=== PATIENT | male | born 1955 | race Caucasian/White ===

== ENCOUNTER 2017-05-20 11:57 | Emergency (ER) | payer OTHER ==
[~2017-05-20] VITALS: Ht 167.6 cm; Wt 63.1 kg
[~2017-05-20 11:57] MED LIST: ASPCH81X PO; IBUP-103 PO; LPR25 PO; MVC20 PO
[2017-05-20 12:09] VITALS: TEMP 36.6; Ht 167.6 cm; Wt 63.1 kg
[2017-05-20] MEDS ORDERED: ONDANSETRON INJ 2 MG/ML 2 ML VIAL IV STA (12:21)
[2017-05-20] MEDS ORDERED: SODIUM CHLORIDE 0.9% 1000ML 500 ML IV ONE (12:21)
[2017-05-20 12:49] LABS: URINE APPEARANCE CLEAR (CLEAR); URINE BILIRUBIN NEG (NEG); URINE COLOR DK YELLOW; URINE NITRITE NEG (NEG); URINE SPECIFIC GRAVITY 1.027 (1.000-1.030); UROBILINOGEN NEG (NEG); ZZUR CULT IF INDIC CLEAN CATCH YES
[2017-05-20 12:56] LABS: MANUAL MICROSCOPIC REQUIRED? NO; REVIEW REQ? YES
[2017-05-20] MEDS ORDERED: CIPROFLOXACIN 500 MG TAB PO STA (13:01)
[2017-05-20] MEDS ORDERED: TAMSULOSIN HCL 0.4 MG CAP PO STA (13:01)
[2017-05-20] MEDS ORDERED: TAMS0.4C38 PO (13:03)
[2017-05-20] MEDS ORDERED: CIPR1TAB10 PO (13:03)
[2017-05-20 13:09] LABS: URINE MUCUS PRESENT (NONE PRSENT)
--- NOTE | 2017-05-20 13:15 | EMERGENCY ROOM VISIT NOTE ---
History Report prepared by [place]: Chuck Arechiga Under the Supervision of: Dr. Juanito Thomas M.D. First contact with patient: 12:26 Chief Complaint: KIDNEY STONE Stated Complaint: KIDNEY STONES History of Present Illness The patient is a 61 year old male who presents to the Emergency Room with complaints of persistent urinary symptoms beginning this week. The patient's symptoms include pain with urination and decreased urinary output. He also complains of abdominal pain. Nothing has improved his symptoms. Source of History: patient Onset: This week Quality: other (urinary symptoms) Timing: other (persistent) Modifying Factors (Relieving): other (none) Associated Symptoms: + abdominal pain Review of Systems See HPI for pertinent positives & negatives. A total of 10 systems reviewed and were otherwise negative. Past Medical & Surgical Medical Problems: (1) CHRIS (acute kidney injury) (2) CVA (cerebral vascular accident) (3) Kidney stone on left side (4) Stroke (5) Ureteral stone with hydronephrosis (6) Urinary tract obstruction by kidney stone Surgical Problems: (1) H/O hernia repair (2) H/O wisdom tooth extraction Family History FH: heart disease Social History Smoking Status: Former Smoker Drug Use: none Marital Status: single Housing Status: lives alone Occupation Status: disabled Current/Historical Medications Scheduled Aspirin (Aspirin Chewable), 81 MG PO DAILY Ciprofloxacin Hcl (Cipro), 1 TAB PO BID Lovastatin (Lovastatin), 20 MG PO DAILY@17 Metoprolol Tartrate (Lopressor), 12.5 MG PO BID Tamsulosin Hcl (Flomax), 0.4 MG PO DAILY Allergies Coded Allergies: No Known Allergies (Unverified , 07/31/16) Physical Exam Vital Signs Date Time Temp Pulse Resp B/P (MAP) Pulse Ox O2 Delivery O2 Flow Rate FiO2 05/20/17 13:48 87 20 177/123 99 Room Air 05/20/17 13:19 188/124 05/20/17 13:15 94 18 170/116 95 Room Air 05/20/17 12:09 36.6 102 20 123/80 100 Room Air Physical Exam GENERAL: Patient is a healthy-appearing well-nourished male HEAD: Normocephalic atraumatic EYES: Ocular movements intact pupils equal and react to light OROPHARYNX mucous membranes are moist no exudates present no erythema or edema present NECK: Supple no nuchal rigidity CHEST: Good equal expansion LUNGS: Clear and equal to auscultation CARDIAC: Normal S1 and S2 ABDOMEN: Soft, no guarding. Pain in the suprapubic area. BACK: No CVA tenderness EXTREMITIES: No pain upon palpation normal muscle strength in all groups no clubbing cyanosis or edema NEURO: Patient is following commands and answering questions appropriately. Alert and oriented x3 Cranial Nerves 2-12 grossly intact Medical Decision & Procedures Laboratory Results Test 05/20/17 12:18 Urine Color DK YELLOW Urine Appearance CLEAR (CLEAR) Urine pH 6.0 (4.5-7.5) Urine Specific [place] 1.027 (1.000-1.030) Urine Protein 1+ (NEG) Urine Glucose (UA) NEG (NEG) Urine Ketones 1+ (NEG) Urine Occult Blood NEG (NEG) Urine Nitrite NEG (NEG) Urine Bilirubin NEG (NEG) Urine Urobilinogen NEG (NEG) Urine Leukocyte Esterase NEG (NEG) Urine WBC (Auto) 1-5 /hpf (0-5) Urine RBC (Auto) 0-4 /hpf (0-4) Urine Hyaline Casts (Auto) 1-5 /lpf (0-5) Urine Epithelial Cells (Auto) 5-10 /lpf (0-5) Urine Bacteria (Auto) NEG (NEG) Urine Mucus PRESENT (NONE PRSENT) Urine Yeast (Auto) (NONE PRSENT) Labs reviewed by ED physician. Medications Administered Medications (Trade) Dose Ordered Sig/Amrik Route Start Time Stop Time Status Last Admin Dose Admin Tamsulosin HCl (Flomax Cap) 0.4 mg NOW STAT PO 05/20/17 13:01 05/20/17 13:03 DC 05/20/17 13:13 0.4 MG Ciprofloxacin (Cipro Tab) 500 mg NOW STAT PO 05/20/17 13:01 05/20/17 13:03 DC 05/20/17 13:13 500 MG ED Course 1232: Past medical records reviewed. The patient was evaluated in room C12B. A complete history and physical examination was performed. 1300: Upon reexamination the patient is resting comfortably. I reexamined his abdomen, and he is completely non-tender. I discussed results and treatment plan with the patient. He verbalizes agreement and understanding. The patient is ready for discharge. Medical Decision Differential diagnosis: Etiologies such as renal colic, appendicitis, diverticulitis, mesenteric ischemia, aortic pathology, infections, inflammatory bowel disease, PUD, biliary pathology, UTI, as well as others were entertained. This is a 61-year-old male who presents emergency department complaining of suprapubic abdominal pain. This pain was immediately relieved with the insertion of Queen catheter. The patient will be placed on Flomax as well as Cipro. I encouraged patient follow-up with urology. Patient and are in agreement with the treatment plan. Medication Reconcilliation Current Medication List: was personally reviewed by me Blood Pressure Screening Patient's blood pressure: Normal blood pressure Blood pressure disposition: Did not require urgent referral Impression Primary Impression: Urinary retention Scribe Attestation The scribe's documentation has been prepared under my direction and personally reviewed by me in its entirety. I confirm that the note above accurately reflects all work, treatment, procedures, and medical decision making performed by me. Departure Information Dispostion Home / Self-Care Prescriptions Ciprofloxacin Hcl (CIPRO) 500 Mg Tab 1 TAB PO BID for 10 Days, #20 TAB Prov: Juanito Thomas MD 05/20/17 Tamsulosin Hcl (FLOMAX) 0.4 Mg Cap 0.4 MG PO DAILY for 10 Days, #10 CAP Prov: Juanito Thomas MD 05/20/17 Referrals Cammie Khanna M.D. (PCP) Forms HOME CARE DOCUMENTATION FORM, IMPORTANT VISIT INFORMATION Patient Instructions ED Catheter Care Queen, ED Retention Urinary Male, My [facility] Additional Instructions Follow up with Dr Davis' office this week You have been examined and treated today on an emergency basis only. This is not a substitute for, or an effort to provide, complete comprehensive medical care. It is impossible to recognize and treat all injuries or illnesses in a single emergency department visit. It is therefore important that you follow up closely with Dr Khanna. Call as soon as possible for an appointment. Thank you for your time and consideration. I look forward to speaking with you again soon. Please don't hesitate to call us if you have any questions.
[2017-05-20 13:48] VITALS: BP 177/123; PULSE 87; O2SAT 99
== END 2017-05-20 14:03 | disposition home or self-care (01) ==
LOC: C.EDB 11:59 → C.EDC 14:03
DX: R33.9 Retention of urine, unspecified (principal); N17.9 Acute kidney failure, unspecified; I63.9 Cerebral infarction, unspecified; Z82.49 Family history of ischemic heart disease and other diseases of the circulatory system; Z87.891 Personal history of nicotine dependence

== ENCOUNTER 2018-02-02 12:38 | Inpatient (IN) | payer OTHER ==
[~2018-02-02] VITALS: Ht 160 cm; Wt 59.5 kg
[~2018-02-02 12:38] MED LIST changes: -IBUP-103 PO
[2018-02-02] MEDS ORDERED: SODIUM CHLORIDE 0.9% 1000ML 1,000 ML IV SCH (12:59)
[2018-02-02] MEDS ORDERED: LEVO75TA5 PO (13:06)
[2018-02-02] MEDS ORDERED: TAMS0.4C38 PO (13:06)
[2018-02-02] MEDS ORDERED: LOVA20TA4 PO (13:06)
[2018-02-02 13:08] LABS: BASO % 0.3 %; BASO ABS # 0.03 K/uL (0-0.2); EOS % 0.4 %; EOS ABS # 0.04 K/uL (0-0.5); HEMATOCRIT 46.3 % (42-52); HEMOGLOBIN 16.6 g/dL (14.0-18.0); IG# 0.02 K/uL (0.00-0.02); LYMPH % 12.2 %; LYMPH ABS # 1.14 K/uL (1.2-3.4); MEAN CELL VOLUME 85.7 fL (80-100); MEAN CORPUSCULAR HEMOGLOBIN 30.7 pg (25-34); MEAN CORPUSCULAR HGB CONC 35.9 g/dl (32-36); MEAN PLATELET VOLUME 10.4 fL (7.4-10.4); MONO % 5.5 %; MONO ABS # 0.51 K/uL (0.11-0.59); NEUT % 81.4 %; NEUT ABS # 7.59 K/uL (1.4-6.5); PLATELET COUNT 276 K/uL (130-400); RED CELL DISTRIBUTION WIDTH CV 13.3 % (11.5-14.5); RED CELL DISTRIBUTION WIDTH SD 41.9 fL (36.4-46.3); WHITE BLOOD COUNT 9.33 K/uL (4.8-10.8)
[2018-02-02 13:19] LABS: BLOOD UREA NITROGEN 18 mg/dl (7-18); CALCIUM 9.6 mg/dl (8.5-10.1); CARBON DIOXIDE 23 mmol/L (21-32); CREATININE 1.33 mg/dl (0.60-1.40); GLUCOSE 104 mg/dl (70-99); POTASSIUM 4.3 mmol/L (3.5-5.1); SODIUM 137 mmol/L (136-145)
--- NOTE | 2018-02-02 13:25 | EMERGENCY ROOM VISIT NOTE ---
History First contact with patient: 12:48 Chief Complaint: SYNCOPE Stated Complaint: SYNCOPE Nursing Triage Summary: pt has a hx of 2 previous CVA's with left sided weakness and some expressive aphagia. pt also has anxiety attacks. pt was riding in a car with his cousin, became diaphoretic and syncopal for approx 50 sec per cousin when awake very anxious and hyperventilating. pt currently anxious but a/ox4 and cooperative History of Present Illness The patient is a 62 year old male who presents to the Emergency Room via ambulance with complaints of "syncope". The patient states that just prior to arrival he was riding in a car when he became diaphoretic, and syncopized for approximately 50 seconds as per cousin. He was brought here via ambulance. The patient states that at baseline he has left-sided weakness with expressive aphasia secondary to 2 CVAs in the past. He states that when he passed out today his head was benavides. He notes no problems right now and his symptoms have resolved. He notes no chest pain or shortness of breath. He ate breakfast today and denies being diabetic. He notes no new symptoms/progression of his CVA symptoms from previous. He notes that he has had syncopal events in the past and does see a heart doctor but does not know why these occur. It has been quite some time since his previous syncopal event. Review of Systems A complete 10-point Review of Systems was discussed with the patient, with pertinent positives and negatives listed in the History of Present Illness. All remaining Review of Systems questions can be considered negative unless otherwise specified. Past Medical/Surgical History Medical Problems: (1) CHRIS (acute kidney injury) (2) CVA (cerebral vascular accident) (3) Kidney stone on left side (4) Stroke (5) Ureteral stone with hydronephrosis (6) Urinary tract obstruction by kidney stone Surgical Problems: (1) H/O hernia repair (2) H/O wisdom tooth extraction Family History FH: heart disease Social History Smoking Status: Former Smoker Drug Use: none Marital Status: single Housing Status: lives alone Occupation Status: disabled Current/Historical Medications Scheduled Aspirin (Aspirin Chewable), 81 MG PO DAILY Levothyroxine Sodium (Levothyroxine Sodium), 75 MCG PO DAILY Lovastatin (Mevacor), 20 MG PO DAILY Tamsulosin Hcl (Flomax), 0.4 MG PO DAILY Physical Exam Vital Signs Date Time Temp Pulse Resp B/P (MAP) Pulse Ox O2 Delivery O2 Flow Rate FiO2 02/02/18 14:08 93 22 92 Room Air 02/02/18 14:01 128/87 Room Air 02/02/18 13:09 136/99 Room Air 02/02/18 13:08 88 20 100 Room Air 02/02/18 13:03 36.8 82 26 133/104 96 Room Air 02/02/18 13:02 100 Room Air 02/02/18 12:50 88 02/02/18 12:47 133/104 Physical Exam VITAL SIGNS - Vital signs and nursing notes were reviewed. Stable. Increased ventilatory rate and blood pressure. GENERAL -62-year-old male appearing his stated age who is in no acute distress. Communicates well with provider and answers questions appropriately. There is some delay with evidence of expressive aphasia which the patient also notes is not new. SKIN - Without rashes. No meningeal or petechial rash. HEAD - NC/AT. EYES - PERRL with EOMI bilaterally. Sclera anicteric. EARS - No deformities of external structures noted on gross examination bilaterally. NOSE - Midline and without cyanosis. No epistaxis or purulent drainage noted. MOUTH/OROPHARYNX - Without perioral cyanosis. Buccal mucosa pink and moist and without leukoplakia. Tongue midline with equal elevation of palate bilaterally. NECK - Neck with FROM. Supple to palpation. No lymphadenopathy noted. No nuchal rigidity. LUNGS - Chest wall symmetric without accessory muscle use, intercostals retractions, or central cyanosis. Normal vesicular breath sounds CTA B/L. No wheezes, rales, or rhonchi appreciated. CARDIAC - RRR with S1/S2. No murmur, rubs, or gallops appreciated. ABDOMEN - Abdominal contour normal without pulsations or visible masses. BS normoactive all four quadrants. No tenderness, palpable masses, hepatosplenomegaly, or ascites noted. EXTREMITIES - No clubbing or peripheral cyanosis. No pretibial edema present. Strength deficit left greater than right. Patient notes that this is not new. This is baseline per patient. NEUROLOGIC - Cranial nerves II through XII grossly intact. Sensory intact to light touch throughout. PSYCH - A&O, and cooperates fully with examiner. Pt is very pleasant and interacts well with examiner. Medical Decision & Procedures ER Provider Diagnostic Interpretation: CHEST ONE VIEW PORTABLE CLINICAL HISTORY: syncope COMPARISON STUDY: 07/27/2016 FINDINGS: The cardiac and mediastinal contours are normal. There is no evidence of focal pulmonary consolidation. There is no evidence of failure. No pleural effusions are visualized.[ There is persistent by basilar atelectasis/scarring. IMPRESSION: Stable bibasilar atelectasis/scarring. No acute findings. Electronically signed by: Manohar Cee M.D. 02/02/2018 1:24 PM Dictated Date/Time: 02/02/2018 1:24 PM HEAD WITHOUT CONTRAST (CT) CT DOSE: 614.27 mGy.cm HISTORY: Mental status change Stroke TECHNIQUE: Multiaxial CT images of the head were performed without the use of intravenous contrast. A dose lowering technique was utilized adhering to the principles of ALARA. Comparison: None. Findings: The paranasal sinuses and mastoid air cells are clear. Old infarct left frontal lobe. Mild compensatory prominence left lateral ventricle. No evidence for acute intracranial hemorrhage. No midline shift. Impression: 1. Old left frontal infarct. 2. Otherwise negative study The above report was generated using voice recognition software. It may contain grammatical, syntax or spelling errors. Electronically signed by: Kimani Waller M.D. 02/02/2018 2:07 PM Dictated Date/Time: 02/02/2018 2:03 PM Laboratory Results 02/02/18 12:50 Red Blood Count 5.40, Mean Corpuscular Volume 85.7, Mean Corpuscular Hemoglobin 30.7, Mean Corpuscular Hemoglobin Concent 35.9, Mean Platelet Volume 10.4, Neutrophils (%) (Auto) 81.4, Lymphocytes (%) (Auto) 12.2, Monocytes (%) (Auto) 5.5, Eosinophils (%) (Auto) 0.4, Basophils (%) (Auto) 0.3, Neutrophils # (Auto) 7.59, Lymphocytes # (Auto) 1.14, Monocytes # (Auto) 0.51, Eosinophils # (Auto) 0.04, Basophils # (Auto) 0.03 02/02/18 12:50 Test 02/02/18 12:50 02/02/18 13:36 White Blood Count 9.33 K/uL (4.8-10.8) Red Blood Count 5.40 M/uL (4.7-6.1) Hemoglobin 16.6 g/dL (14.0-18.0) Hematocrit 46.3 % (42-52) Mean Corpuscular Volume 85.7 fL (80-100) Mean Corpuscular Hemoglobin 30.7 pg (25-34) Mean Corpuscular Hemoglobin Concent 35.9 g/dl (32-36) Platelet Count 276 K/uL (130-400) Mean Platelet Volume 10.4 fL (7.4-10.4) Neutrophils (%) (Auto) 81.4 % Lymphocytes (%) (Auto) 12.2 % Monocytes (%) (Auto) 5.5 % Eosinophils (%) (Auto) 0.4 % Basophils (%) (Auto) 0.3 % Neutrophils # (Auto) 7.59 K/uL (1.4-6.5) Lymphocytes # (Auto) 1.14 K/uL (1.2-3.4) Monocytes # (Auto) 0.51 K/uL (0.11-0.59) Eosinophils # (Auto) 0.04 K/uL (0-0.5) Basophils # (Auto) 0.03 K/uL (0-0.2) RDW Standard Deviation 41.9 fL (36.4-46.3) RDW Coefficient of Variation 13.3 % (11.5-14.5) Immature Granulocyte % (Auto) 0.2 % Immature Granulocyte # (Auto) 0.02 K/uL (0.00-0.02) Anion Gap 9.0 mmol/L (3-11) Est Creatinine Clear Calc Drug Dose 49.5 ml/min Estimated GFR () 66.9 Estimated GFR (Non- 57.7 BUN/Creatinine Ratio 13.4 (10-20) Calcium Level 9.6 mg/dl (8.5-10.1) Magnesium Level 2.4 mg/dl (1.8-2.4) Total Creatine Kinase 81 U/L (39-308) Creatine Kinase MB 1.0 ng/ml (0.5-3.6) Creatine Kinase MB Ratio 1.2 (0-3.0) Troponin I < 0.015 ng/ml (0-0.045) Prothrombin Time 11.6 SECONDS (9.0-12.0) Prothromb Time International Ratio 1.1 (0.9-1.1) Activated Partial Thromboplast Time 25.7 SECONDS (21.0-31.0) Partial Thromboplastin Ratio 1.0 Medications Administered Medications (Trade) Dose Ordered Sig/Amrik Route Start Time Stop Time Status Last Admin Dose Admin Sodium Chloride 1,000 ml @ 50 mls/hr Q20H IV 02/02/18 12:59 03/04/18 12:58 02/02/18 13:40 50 MLS/HR Medical Decision Patient was seen and evaluated as above in room B6. He presents to us today via ambulance status post syncopal event. Past medical history significant for that of 2 CVAs. Review was performed of nursing notes and vital signs. After obtaining a thorough history and physical examination the above work up was performed. Chest x-ray and bedside EKG were obtained. EKG reveals per my interpretation normal sinus rhythm, with short HI rate of 79 bpm. This EKG does reveal potential ischemic changes in leads III, aVF, V2, V3 as well as V4, V5 and V6 all of which are unchanged compared to previous study and he has no chest pain. CT the head reveals old infarct. Chest x-ray reveals chronic change. CBC reveals no leukocytosis or anemia. Coags are normal. His metabolic panel reveals no evidence of kidney failure. Troponin negative. The patient with his syncopal event of unknown origin and his underlying past medical history I believe warrants inpatient management to rule out other significant causes. I did review his recent stress test from December of which there was a lot of artifact noted//inadequate assessment secondary to motion. I did discuss this with the attending physician as well as the hospitalist who will further evaluate his syncopal event. I attest that I have personally reviewed the patient medication list. I attest that I have reviewed the patient's blood pressure and it was found to be elevated likely secondary to situation. In the evaluation and treatment of this patient, the following differential diagnoses were considered: Concussion, Contrecoup Injury, Brain Tumor, Depression, Encephalitis, Hypothyroidism, MD, PE, meningitis, CVA, TIA, Migraine , Cluster Headache, Intracranial Abnormality, Intracranial Hemorrhage, Subdural Hematoma, Subarachnoid Hemorrhage, Hydrocephalus. Impression Primary Impression: Syncope Departure Information Referrals Cammie Khanna M.D. (PCP) Patient Instructions [facility]
[2018-02-02 13:53] LABS: INR 1.1 (0.9-1.1); PTT PATIENT 25.7 SECONDS (21.0-31.0)
--- NOTE | 2018-02-02 13:59 | EMERGENCY ROOM VISIT NOTE ---
ED Visit Note First contact with patient: 12:48 I did evaluate and examine this patient myself. I did guide management for the patient. I agree with the PA's assessment as discussed. Please see the PAs dictation for further details. I did independently review the CT scan, chest x- ray and blood work. Patient is presenting with a syncopal episode today. He will be hospitalized for further evaluation.
--- NOTE | 2018-02-02 14:08 | DIAGNOSTIC IMAGING REPORT ---
HEAD WITHOUT CONTRAST (CT) CT DOSE: 614.27 mGy.cm HISTORY: Mental status change Stroke TECHNIQUE: Multiaxial CT images of the head were performed without the use of intravenous contrast. A dose lowering technique was utilized adhering to the principles of ALARA. Comparison: None. Findings: The paranasal sinuses and mastoid air cells are clear. Old infarct left frontal lobe. Mild compensatory prominence left lateral ventricle. No evidence for acute intracranial hemorrhage. No midline shift. Impression: 1. Old left frontal infarct. 2. Otherwise negative study The above report was generated using voice recognition software. It may contain grammatical, syntax or spelling errors. Electronically signed by: Kimani Waller M.D. 02/02/2018 2:07 PM Dictated Date/Time: 02/02/2018 2:03 PM
[2018-02-02] MEDS ORDERED: ONDANSETRON INJ 2 MG/ML 2 ML VIAL IV PRN (15:15)
[2018-02-02] MEDS ORDERED: ACETAMINOPHEN 325 MG TAB PO PRN (15:15)
[2018-02-02 16:10] VITALS: O2SAT 97
--- NOTE | 2018-02-02 16:39 | History and Physical ---
History & Physical Date & Time of Service: Feb 02, 2018 ~ 14:45 Chief Complaint: Syncope Primary Care Physician: Elizabeth Tinsley D.O. History of Present Illness 62-year-old male who presents to the ED after syncopal event today. Patient has a long-standing history of lightheadedness and near syncope. He has been evaluated by electrophysiology as an outpatient. Patient had a 0 patch completed in 10/2017 that showed bradycardia and 4 second pause while sleeping. Patient also underwent a cardiac CT that was unremarkable. Patient was referred to have a implantable loop recorder placed however that has not been scheduled yet. Patient reports that while driving today he started to feel lightheaded. He then pulled over to the side of the road and lay down for 15 minutes. He reports his symptoms resolved. He then drove to his cousin's house. He was riding in the car with her whenever he reports he started to feel lightheaded again. He then subsequently passed out. I attempted to contact the patient's cousin who he was with however she did not answer the phone. Patient reports he was told he was out for about 1 minute. No reported tongue biting, loss of bowel or bladder function, or postictal-like state. Patient denies associated chest pain or shortness of breath. He reports he has never passed out in the past. He reports he otherwise has been feeling well recently. No fevers or chills. He denies abdominal pain, nausea, vomiting, or diarrhea. No urinary symptoms. In the ED, no bradycardia or pauses have been noted. BP is stable. Labs are unremarkable. EKG shows new T-wave inversions in the anterior leads. Past Medical/Surgical History Medical Problems: (1) CVA (cerebral vascular accident) Status: Chronic (2) Dyslipidemia Status: Chronic (3) Hypertension Status: Chronic (4) Left carotid artery occlusion Status: Chronic (5) Renal calculi Status: Chronic (6) Subclinical hypothyroidism Status: Chronic Surgical Problems: (1) H/O hernia repair Status: Chronic (2) H/O lithotripsy Status: Chronic (3) H/O wisdom tooth extraction Status: Chronic Family History FH: heart disease FATHER ([place] at age 39) BROTHER (Twin, fatal [place] at age 49) BROTHER ([place] at age 55) Social History Smoking Status: Former Smoker Alcohol Use: none Marital Status: single Housing status: lives alone Immunizations History of Influenza Vaccine: Yes Influenza Vaccine Date: Oct 02, 2017 History of Tetanus Vaccine?: Yes Tetanus Immunization Date: Mar 22, 2011 Allergies Coded Allergies: No Known Allergies (Unverified , 07/31/16) Home Medications Scheduled Aspirin (Aspirin Chewable), 81 MG PO DAILY Levothyroxine Sodium (Levothyroxine Sodium), 75 MCG PO DAILY Lovastatin (Mevacor), 20 MG PO DAILY Tamsulosin Hcl (Flomax), 0.4 MG PO DAILY Review of Systems ROS per HPI, all other systems reviewed and negative Physical Exam Vital Signs Date Time Temp Pulse Resp B/P (MAP) Pulse Ox O2 Delivery O2 Flow Rate FiO2 02/02/18 16:10 101 16 150/101 97 Room Air 02/02/18 15:21 95 02/02/18 15:15 102 14 135/102 96 Room Air 02/02/18 14:08 93 22 92 Room Air 02/02/18 14:01 128/87 Room Air 02/02/18 13:09 136/99 Room Air 02/02/18 13:08 88 20 100 Room Air 02/02/18 13:03 36.8 82 26 133/104 96 Room Air 02/02/18 13:02 100 Room Air 02/02/18 12:50 88 02/02/18 12:47 133/104 General Appearance: WD/WN, no apparent distress Head: normocephalic, atraumatic Eyes: normal inspection, EOMI, sclerae normal ENT: hearing grossly normal, + pertinent finding (Mucous membranes moist) Neck: supple, no JVD, trachea midline Respiratory/Chest: lungs clear, normal breath sounds, no respiratory distress Cardiovascular: regular rate, rhythm, no edema, normal peripheral pulses Abdomen/GI: normal bowel sounds, non tender, soft, no organomegaly Extremities/Musculoskelatal: normal inspection, no calf tenderness, normal capillary refill Neurologic/Psych: alert, normal mood/affect, oriented x 3, + facial droop (Left -sided, chronic), + motor weakness (LUE/LLE strength 4/5, chronic), + pertinent finding (Dysarthria, chronic) Skin: normal color, warm/dry Diagnostics Laboratory Results Results Past 24 Hours Test 02/02/18 12:50 02/02/18 13:36 Range/Units White Blood Count 9.33 4.8-10.8 K/uL Red Blood Count 5.40 4.7-6.1 M/uL Hemoglobin 16.6 14.0-18.0 g/dL Hematocrit 46.3 42-52 % Mean Corpuscular Volume 85.7 80-100 fL Mean Corpuscular Hemoglobin 30.7 25-34 pg Mean Corpuscular Hemoglobin Concent 35.9 32-36 g/dl Platelet Count 276 130-400 K/uL Mean Platelet Volume 10.4 7.4-10.4 fL Neutrophils (%) (Auto) 81.4 % Lymphocytes (%) (Auto) 12.2 % Monocytes (%) (Auto) 5.5 % Eosinophils (%) (Auto) 0.4 % Basophils (%) (Auto) 0.3 % Neutrophils # (Auto) 7.59 1.4-6.5 K/uL Lymphocytes # (Auto) 1.14 1.2-3.4 K/uL Monocytes # (Auto) 0.51 0.11-0.59 K/uL Eosinophils # (Auto) 0.04 0-0.5 K/uL Basophils # (Auto) 0.03 0-0.2 K/uL RDW Standard Deviation 41.9 36.4-46.3 fL RDW Coefficient of Variation 13.3 11.5-14.5 % Immature Granulocyte % (Auto) 0.2 % Immature Granulocyte # (Auto) 0.02 0.00-0.02 K/uL Sodium Level 137 136-145 mmol/L Potassium Level 4.3 3.5-5.1 mmol/L Chloride Level 105 98-107 mmol/L Carbon Dioxide Level 23 21-32 mmol/L Anion Gap 9.0 3-11 mmol/L Blood Urea Nitrogen 18 7-18 mg/dl Creatinine 1.33 0.60-1.40 mg/dl Est Creatinine Clear Calc Drug Dose 49.5 ml/min Estimated GFR () 66.9 Estimated GFR (Non- 57.7 BUN/Creatinine Ratio 13.4 10-20 Random Glucose 104 70-99 mg/dl Calcium Level 9.6 8.5-10.1 mg/dl Magnesium Level 2.4 1.8-2.4 mg/dl Total Creatine Kinase 81 39-308 U/L Creatine Kinase MB 1.0 0.5-3.6 ng/ml Creatine Kinase MB Ratio 1.2 0-3.0 Troponin I < 0.015 0-0.045 ng/ml Thyroid Stimulating Hormone (TSH) 1.200 0.300-4.500 uIu/ml Prothrombin Time 11.6 9.0-12.0 SECONDS Prothromb Time International Ratio 1.1 0.9-1.1 Activated Partial Thromboplast Time 25.7 21.0-31.0 SECONDS Partial Thromboplastin Ratio 1.[address] head impression: 1. Old left frontal infarct. 2. Otherwise negative study CXR IMPRESSION: Stable bibasilar atelectasis/scarring. No acute findings. Impression Assessment and Plan SYNCOPE -admit to telemetry -Patient presenting after experiencing a syncopal event today -Has been following with EP as an outpatient for lightheadedness and near syncope; had an outpatient Holter monitor that showed bradycardia and 4 second pause while sleeping-was referred for implantable loop recorder however has not been scheduled yet -EKG shows normal sinus rhythm with incomplete right bundle branch block and new T-wave inversions in the anterior leads -No preceding chest pain or shortness of breath; syncope does not seem stroke or seizure-like in nature -Initial troponin negative, will continue to cycle cardiac enzymes -Echo 10/2017-EF 55-60%, no significant valvular disease; will defer repeating echocardiogram to cardiology -cardiac CT 01/07/18- Agatston calcium score 0 -Cardiology consult, case discussed with Dr. Rainey HYPOTHYROIDISM -TSH 1.2 -Continue levothyroxine HISTORY OF CVA -Continue aspirin and statin DVT PROPHYLAXIS -SQ Lovenox DISPOSITION -In my clinical judgment this beneficiary meets acute admission criteria, established by [facility], that includes being hospitalized through two midnights. Addendum: I have seen and examined the patient and agree with the assessment and plan as above with the following exceptions. Patient has a chronic expressive aphasia from prior strokes as well as other chronic deficits that have not changed today. He communicates syncopal events similar to today's once a month. Prior monitoring has showed 4 second pause while sleeping. Current plan is for loop recorder as stated above. The patient denies any symptoms at this time and states that prior to syncopal events he will feel dizziness. Cardiology has restricted his driving abilities. Exam was otherwise unremarkable. Continue to trend serial enzymes overnight and monitor on telemetry. Drumright, DO Resuscitation Status VTE Prophylaxis Will order VTE Prophylaxis: Yes
--- NOTE | 2018-02-02 16:54 | CARDIOLOGY CONSULTATION ---
DATE OF CONSULTATION: 02/02/2018 Cardiology consultation. REASON FOR CONSULTATION: Syncope, abnormal ECG. REFERRING PHYSICIAN: DEMETRI Carter. HISTORY OF PRESENT ILLNESS: Mr. Durant is a 62-year-old gentleman who presents for evaluation of syncope. In the hours preceding presentation, patient developed lightheaded and dizziness while driving. He pulled his car to the side of the road and then lied down. Apparently he passed out for approximately 50 minutes. This was witnessed by his cousin. His cousin is not here for history at this time. Patient denies any incontinence, tongue biting, or postictal state. There are no tonic/clonic movements reported. Carries a history of recurrent syncope over the past 12 months. He has been evaluated 14-day ZIO monitor which demonstrated an asymptomatic 4-second pause occurring at 0539 a.m. Notes intermittent lightheadedness and episodes which typically last about 15 minutes. These occur approximately 1 time per month. Denies any exertional chest pain or unusual shortness of breath. Recent cardiac CT demonstrated an Agatston score of 0; however, the coronary arteries were poorly visualized. Recent resting 2D transthoracic echo performed in October demonstrated no structural heart disease. Currently, patient is resting comfortably. Telemetry demonstrates sinus rhythm and sinus tachycardia. No significant baseline laboratory abnormalities noted. REVIEW OF SYSTEMS: The pertinent positive noted above, comprehensive 10-system review is otherwise negative. PAST MEDICAL HISTORY: 1. Syncope. 2. Sinus node dysfunction with asymptomatic 4-second pause for recent ZIO monitor. 3. Cerebrovascular accident. 4. Left-sided nephrolithiasis. 5. Hydronephrosis. 6. Carotid vascular disease. PAST SURGICAL HISTORY: 1. Hernia repair. 2. Foley tooth extraction. FAMILY HISTORY: Significant for premature coronary artery disease. Twin brother of myocardial infarction at age 58, father of myocardial infarction at age 45. SOCIAL HISTORY: Former tobacco abuse. Lives alone. ALLERGIES: No known drug allergies. CURRENT OUTPATIENT MEDICATIONS: 1. Aspirin 81 mg daily. 2. Synthroid 75 mcg daily. 3. Lovastatin 20 mg daily. 4. Flomax 0.4 mg daily. ECG ON ADMISSION: Sinus rhythm, right bundle branch block; compared to prior tracing, no significant change. CT of the head demonstrates old left frontal infarct, otherwise negative study. LABORATORY DATA: White blood cell count 9.33, hemoglobin 16.6, platelet count is 276. Sodium 137, potassium 4.3, chloride 105, CO2 23, BUN is 18, creatinine is 1.33. Troponin less than 0.05. TSH is pending. INR is 1.1. PHYSICAL EXAMINATION: VITAL SIGNS: Temperature is 36.8 degrees centigrade, pulse at 95 beats per minute and regular, respiratory rate is 14 breaths per minute, blood pressure 128/87, SAO2 96% on room air. GENERAL: NAD, awake, alert and oriented x3. THROAT: His mucous membranes are moist. No scleral icterus. Conjunctivae pink. NECK: Supple without JVD or HJR. No carotid bruit. HEART: Regular with normal S1 and S2. There is no murmur, rub or gallop. LUNGS: Clear without rales, rhonchi, wheeze. ABDOMEN: Soft, nontender. No rebound or guarding. Normal bowel sounds. EXTREMITIES: Warm and dry. There is no clubbing, cyanosis or edema. NEUROLOGIC: Demonstrates expressive aphasia, left-sided weakness. FINAL IMPRESSION: 1. A 62-year-old male who presents for evaluation of syncope. This issue has been recurrent over the past 12 months with recent 14-day ZIO monitor demonstrating 4-second pause at approximately 5:[address] with Agatston score of 0 however, coronary arteries were not well visualized. 2. Cerebrovascular disease status post stroke x2 and history of carotid vascular disease with left-sided internal carotid artery occlusion. 3. Dyslipidemia. 4. Asymptomatic paroxysmal ventricular tachycardia per recent 14-day ZIO monitor. 5. No evidence of structural heart disease per recent resting 2D transthoracic echo. PLAN AND RECOMMENDATIONS: Continue telemetry monitoring during hospitalization. Electrophysiology will be consulted for implantable loop recorder. The risks of this procedure were discussed with patient. He is agreeable. He will be made n.p.o. except medications after midnight. Current outpatient medications will be continued as previously ordered. I will continue to follow along during hospitalization. Thank you for allowing me to participate in the care of your patient.
[2018-02-02 17:14] VITALS: BP 134/92; PULSE 107; TEMP 36.7; Ht 160 cm; Wt 59.5 kg
[2018-02-02 19:32] VITALS: BP 164/102; PULSE 86; TEMP 36.7; O2SAT 93
[2018-02-02] MEDS: ENOXAPARIN 40 MG/0.4 ML SYR SC SCH (20:05)
[2018-02-02] MEDS: TAMSULOSIN HCL 0.4 MG CAP PO SCH ×2 (20:09→20:12)
[2018-02-02] MEDS ORDERED: NURSING VERBAL MED ORDER ONE (20:15)
[2018-02-02] MEDS: LOVASTATIN 20 MG TAB PO SCH ×2 (21:40→22:31)
[2018-02-02 23:46] VITALS: BP 145/89; PULSE 72; TEMP 36.6; O2SAT 95
[2018-02-03 04:41] VITALS: BP 136/80; PULSE 56; TEMP 36.6; O2SAT 97
[2018-02-03 05:58] LABS: HEMATOCRIT 42.4 % (42-52); HEMOGLOBIN 14.7 g/dL (14.0-18.0); MEAN CELL VOLUME 86.4 fL (80-100); MEAN CORPUSCULAR HEMOGLOBIN 29.9 pg (25-34); MEAN CORPUSCULAR HGB CONC 34.7 g/dl (32-36); MEAN PLATELET VOLUME 10.2 fL (7.4-10.4); PLATELET COUNT 255 K/uL (130-400); RED CELL DISTRIBUTION WIDTH CV 13.4 % (11.5-14.5); RED CELL DISTRIBUTION WIDTH SD 42.4 fL (36.4-46.3); WHITE BLOOD COUNT 7.42 K/uL (4.8-10.8)
[2018-02-03] MEDS ORDERED: LEVOTHYROXINE 75 MCG TAB PO SCH (06:00)
--- NOTE | 2018-02-03 06:04 | Clinical Documentation Query ---
CLINICAL DOCUMENTATION QUERY 62 year old male who presents to the Emergency Room via ambulance with complaints of "syncope". H&P and cardiology consult state a "4 second pause" was recorded on halter monitor. The term "pause/4 second pause" is not able to be indexed by CMS coding indexes. In your clinical opinion is this patient being managed for: (x ) SA Pause possibly causing syncope ( ) Not Agree ( ) Other explanation of clinical findings (Please Explain) ( ) Unable to determine (Please Define) ( ) Need to Discuss The medical record reflects the following clinical findings, treatment, and risk factors. Clinical Indicators: Per cardiology consult, "This issue has been recurrent over the past 12 months with recent 14-day ZIO monitor demonstrating 4-second pause at approximately 5:39 a.m." Treatment: EP consult for loop recorder, cardiology consult, Risk Factors: Age, Please clarify and document your clinical opinion in the progress notes and discharge summary. Terms such as "probable", "suspected", "likely", "questionable", "possible", or "still to be ruled out" are acceptable. IF IN AGREEMENT, YOU MUST DOCUMENT ABOVE DIAGNOSTIC STATEMENT IN DAILY PROGRESS NOTES AND DISCHARGE SUMMARY. This document is not part of the patient's record. Thank You, Jett Darby, RN [phone]
[2018-02-03 06:26] LABS: CALCIUM 8.5 mg/dl (8.5-10.1); CREATININE 1.25 mg/dl (0.60-1.40)
[2018-02-03] MEDS: TAMSULOSIN HCL 0.4 MG CAP PO SCH (07:42)
[2018-02-03] MEDS: ASPIRIN 81 MG ECTAB PO SCH (07:43)
[2018-02-03 07:54] VITALS: BP 129/83; PULSE 58; TEMP 36.6; O2SAT 92
[2018-02-03] MEDS ORDERED: LIDOCAINE HCL 1% 20 ML VIAL ONE (08:48)
[2018-02-03] MEDS ORDERED: LOVASTATIN 20 MG TAB PO SCH (09:00)
[2018-02-03] MEDS ORDERED: BACITRACIN OINT 0.9 GM PKT ONE (09:11)
--- NOTE | 2018-02-03 09:12 | Cardiology Procedure Brief Nt ---
Preliminary Cardiology Note Procedure Date Feb 03, 2018. Pre-Procedure Diagnosis Syncope Post-Procedure Diagnosis same Procedure(s) Performed IMplant medtronic loop recorder Geology Professor Troy Hat Lacer(s) none Estimated Blood Loss 0cc Preliminary Findings no complication Recommendations Keep wound dry for 5 days Specimens none Complication(s) None Disposition PCU
--- NOTE | 2018-02-03 10:16 | Cardiology Follow-Up ---
Subjective General Date of Service: Feb 03, 2018. Pt evaluation today including: conversation w/ patient, physical exam, chart review, lab review, review of studies, conversation w/ oracle hyperion consultant, review of inpatient medication list History of Present Illness The patient is a 62 year old male seen in follow-up. Denies chest pain or unusual shortness of breath. No recurrent lightheadedness, dizziness, syncope, or near syncope. Telemetry demonstrates sinus rhythm and sinus bradycardia. There was one short salvos of paroxysmal supraventricular tachycardia without associated symptoms. Implantable loop recorder inserted this morning. No complications. Patient offers no complaints. Allergies Coded Allergies: No Known Allergies (Unverified , 07/31/16) Social History Smoking Status: Former Smoker Hx Alcohol Use - Type And Amou: No Hx Substance Use - Type And Am: No Review of Systems Respiratory: No cough, No sputum, No wheezing, No shortness of breath, No dyspnea on exertion, No dyspnea at rest, No hemoptysis Cardiac: No chest pain, No orthopnea, No PND, No edema, No claudication, No palpitations Physical Exam Vital Signs Last Vital Signs Documentation Date Time Temp Pulse Resp B/P (MAP) Pulse Ox O2 Delivery O2 Flow Rate FiO2 02/03/18 08:00 Room Air 02/03/18 07:54 36.6 58 18 129/83 (98) 92 Physical Exam Constitutional: General Apperance: heathly-appearing Level of Distress: NAD Ambulation: ambulating normally Head: normocephalic Neck: supple Lungs: Auscultation: breath sounds normal, no wheezing, no rales/crackles, no rhonchi Cardiovascular: Heart Auscultation: RRR, normal S1, normal S2, no murmurs, no rubs, no gallops Peripheral Pulses: Radial Pulse: normal on the right Abdomen: Bowel Sounds: normal Inspection & Palpation: soft, non-distended, no tenderness, guarding & rebound Extremities: no cyanosis, no edema, no clubbing, no ulcers Neurologic: Gait & Station: pertinent finding (Left-sided weakness) Assessment and Plan Assessment and Plan FINAL IMPRESSION: 1. 62-year-old male with recurrent syncope. -No symptomatic dysrhythmias or bradycardia on telemetry -Long-term implantable loop recorder placed this a.m. -No evidence of structural heart disease per prior evaluation 2. Cerebrovascular disease status post stroke x2 and history of carotid vascular disease with left-sided internal carotid artery occlusion. 3. Dyslipidemia. 4. Asymptomatic short salvos of paroxysmal supraventricular tachycardia on telemetry PLAN AND RECOMMENDATIONS: I will arrange for follow-up of implantable loop recorder through my office at [facility]. Patient will require interrogations every 3 months. No medication changes at this time. Patient instructed to lower himself to the ground with any near syncopal or prodromal symptoms. Instructed not to drive until follow-up evaluation with cardiology. No further inpatient cardiac testing. I will arrange for outpatient cardiology follow-up in 1 week. Thank you for allowing to participate in the care of your patient. Cardiology will sign off at this time. Please call with questions. Laboratory Results Last 24 Hours Test 02/02/18 12:50 02/02/18 13:20 02/02/18 13:36 02/02/18 18:19 White Blood Count 9.33 K/uL Red Blood Count 5.40 M/uL Hemoglobin 16.6 g/dL Hematocrit 46.3 % Mean Corpuscular Volume 85.7 fL Mean Corpuscular Hemoglobin 30.7 pg Mean Corpuscular Hemoglobin Concent 35.9 g/dl Platelet Count 276 K/uL Mean Platelet Volume 10.4 fL Neutrophils (%) (Auto) 81.4 % Lymphocytes (%) (Auto) 12.2 % Monocytes (%) (Auto) 5.5 % Eosinophils (%) (Auto) 0.4 % Basophils (%) (Auto) 0.3 % Neutrophils # (Auto) 7.59 K/uL Lymphocytes # (Auto) 1.14 K/uL Monocytes # (Auto) 0.51 K/uL Eosinophils # (Auto) 0.04 K/uL Basophils # (Auto) 0.03 K/uL RDW Standard Deviation 41.9 fL RDW Coefficient of Variation 13.3 % Immature Granulocyte % (Auto) 0.2 % Immature Granulocyte # (Auto) 0.02 K/uL Sodium Level 137 mmol/L Potassium Level 4.3 mmol/L Chloride Level 105 mmol/L Carbon Dioxide Level 23 mmol/L Anion Gap 9.0 mmol/L Blood Urea Nitrogen 18 mg/dl Creatinine 1.33 mg/dl Est Creatinine Clear Calc Drug Dose 49.5 ml/min Estimated GFR () 66.9 Estimated GFR (Non- 57.7 BUN/Creatinine Ratio 13.4 Random Glucose 104 mg/dl Calcium Level 9.6 mg/dl Magnesium Level 2.4 mg/dl Total Creatine Kinase 81 U/L Creatine Kinase MB 1.0 ng/ml Creatine Kinase MB Ratio 1.2 Troponin I < 0.015 ng/ml < 0.015 ng/ml Thyroid Stimulating Hormone (TSH) 1.200 uIu/ml Bedside Glucose 98 mg/dl Prothrombin Time 11.6 SECONDS Prothromb Time International Ratio 1.1 Activated Partial Thromboplast Time 25.7 SECONDS Partial Thromboplastin Ratio 1.0 Test 02/02/18 18:35 02/03/18 00:19 02/03/18 05:35 Urine Color DK YELLOW Urine Appearance CLEAR Urine pH 7.0 Urine Specific [place] 1.027 Urine Protein TRACE Urine Glucose (UA) NEG Urine Ketones 2+ Urine Occult Blood NEG Urine Nitrite NEG Urine Bilirubin NEG Urine Urobilinogen NEG Urine Leukocyte Esterase NEG Urine WBC (Auto) 1-5 /hpf Urine RBC (Auto) 0-4 /hpf Urine Hyaline Casts (Auto) 1-5 /lpf Urine Epithelial Cells (Auto) 10-20 /lpf Urine Bacteria (Auto) NEG Troponin I < 0.015 ng/ml White Blood Count 7.42 K/uL Red Blood Count 4.91 M/uL Hemoglobin 14.7 g/dL Hematocrit 42.4 % Mean Corpuscular Volume 86.4 fL Mean Corpuscular Hemoglobin 29.9 pg Mean Corpuscular Hemoglobin Concent 34.7 g/dl RDW Standard Deviation 42.4 fL RDW Coefficient of Variation 13.4 % Platelet Count 255 K/uL Mean Platelet Volume 10.2 fL Sodium Level 137 mmol/L Potassium Level 4.0 mmol/L Chloride Level 107 mmol/L Carbon Dioxide Level 24 mmol/L Anion Gap 6.0 mmol/L Blood Urea Nitrogen 19 mg/dl Creatinine 1.25 mg/dl Est Creatinine Clear Calc Drug Dose 50.6 ml/min Estimated GFR () 72.1 Estimated GFR (Non- 62.2 BUN/Creatinine Ratio 15.2 Random Glucose 77 mg/dl Calcium Level 8.5 mg/dl
--- NOTE | 2018-02-03 10:19 | Progress Note ---
Medicine Progress Note Date & Time of Visit: Feb 03, 2018 at 10:19 . Subjective CC: Follow-up visit for syncope. HPI: Feels well. No recurrent syncope. No chest pain, palpitations. ROS: General- no fever Resp- no cough; no shortness of breath Cardiac- as noted above in HPI GI- no nausea, no vomiting, no diarrhea, no constipation - no dysuria, no difficulty voiding Neuro- no headache; no new neuro symptoms . Objective Last 8 Hrs Date Time Temp Pulse Resp B/P (MAP) Pulse Ox O2 Delivery O2 Flow Rate FiO2 02/03/18 08:00 Room Air 02/03/18 07:54 36.6 58 18 129/83 (98) 92 Room Air 02/03/18 04:41 36.6 56 18 136/80 (98) 97 Room Air 02/03/18 04:00 Room Air Physical Exam: General- lying in bed, no distress Lungs- clear to auscultation; no respiratory distress Cardiovascular- RRR; no murmur or gallop appreciated; no JVD; no pretibial edema Abdomen- + bowel sounds, soft, nontender Extremities- no cyanosis; no calf tenderness Neuro- alert, oriented, expressive aphasia Skin- warm & dry . Laboratory Results: Last 24 Hours Test 02/02/18 12:50 02/02/18 13:20 02/02/18 13:36 02/02/18 18:19 White Blood Count 9.33 K/uL Red Blood Count 5.40 M/uL Hemoglobin 16.6 g/dL Hematocrit 46.3 % Mean Corpuscular Volume 85.7 fL Mean Corpuscular Hemoglobin 30.7 pg Mean Corpuscular Hemoglobin Concent 35.9 g/dl Platelet Count 276 K/uL Mean Platelet Volume 10.4 fL Neutrophils (%) (Auto) 81.4 % Lymphocytes (%) (Auto) 12.2 % Monocytes (%) (Auto) 5.5 % Eosinophils (%) (Auto) 0.4 % Basophils (%) (Auto) 0.3 % Neutrophils # (Auto) 7.59 K/uL Lymphocytes # (Auto) 1.14 K/uL Monocytes # (Auto) 0.51 K/uL Eosinophils # (Auto) 0.04 K/uL Basophils # (Auto) 0.03 K/uL RDW Standard Deviation 41.9 fL RDW Coefficient of Variation 13.3 % Immature Granulocyte % (Auto) 0.2 % Immature Granulocyte # (Auto) 0.02 K/uL Sodium Level 137 mmol/L Potassium Level 4.3 mmol/L Chloride Level 105 mmol/L Carbon Dioxide Level 23 mmol/L Anion Gap 9.0 mmol/L Blood Urea Nitrogen 18 mg/dl Creatinine 1.33 mg/dl Est Creatinine Clear Calc Drug Dose 49.5 ml/min Estimated GFR () 66.9 Estimated GFR (Non- 57.7 BUN/Creatinine Ratio 13.4 Random Glucose 104 mg/dl Calcium Level 9.6 mg/dl Magnesium Level 2.4 mg/dl Total Creatine Kinase 81 U/L Creatine Kinase MB 1.0 ng/ml Creatine Kinase MB Ratio 1.2 Troponin I < 0.015 ng/ml < 0.015 ng/ml Thyroid Stimulating Hormone (TSH) 1.200 uIu/ml Bedside Glucose 98 mg/dl Prothrombin Time 11.6 SECONDS Prothromb Time International Ratio 1.1 Activated Partial Thromboplast Time 25.7 SECONDS Partial Thromboplastin Ratio 1.0 Test 02/02/18 18:35 02/03/18 00:19 02/03/18 05:35 Urine Color DK YELLOW Urine Appearance CLEAR Urine pH 7.0 Urine Specific [place] 1.027 Urine Protein TRACE Urine Glucose (UA) NEG Urine Ketones 2+ Urine Occult Blood NEG Urine Nitrite NEG Urine Bilirubin NEG Urine Urobilinogen NEG Urine Leukocyte Esterase NEG Urine WBC (Auto) 1-5 /hpf Urine RBC (Auto) 0-4 /hpf Urine Hyaline Casts (Auto) 1-5 /lpf Urine Epithelial Cells (Auto) 10-20 /lpf Urine Bacteria (Auto) NEG Troponin I < 0.015 ng/ml White Blood Count 7.42 K/uL Red Blood Count 4.91 M/uL Hemoglobin 14.7 g/dL Hematocrit 42.4 % Mean Corpuscular Volume 86.4 fL Mean Corpuscular Hemoglobin 29.9 pg Mean Corpuscular Hemoglobin Concent 34.7 g/dl RDW Standard Deviation 42.4 fL RDW Coefficient of Variation 13.4 % Platelet Count 255 K/uL Mean Platelet Volume 10.2 fL Sodium Level 137 mmol/L Potassium Level 4.0 mmol/L Chloride Level 107 mmol/L Carbon Dioxide Level 24 mmol/L Anion Gap 6.0 mmol/L Blood Urea Nitrogen 19 mg/dl Creatinine 1.25 mg/dl Est Creatinine Clear Calc Drug Dose 50.6 ml/min Estimated GFR () 72.1 Estimated GFR (Non- 62.2 BUN/Creatinine Ratio 15.2 Random Glucose 77 mg/dl Calcium Level 8.5 mg/dl Assessment & Plan SYNCOPE Recurrent syncope. Recent outpatient ZIO monitor demonstrated a 4 second pause as well as paroxysmal supraventricular tachycardia. Episodes of syncope could be secondary to bradycardia or tachyarrhythmias or other etiologies. Implantable loop recorder placed. Check orthostatic vital signs. Check Lyme titer. Patient will be advised not to drive due to recurrent episodes of unexplained syncope. CEREBROVASCULAR DISEASE Status post 2 strokes. Neuro status stable. Continue aspirin, lovastatin. HYPOTHYROIDISM Continue levothyroxine. BPH Continue tamsulosin. Advise HS dosing due to syncopal episodes. VTE PROPHYLAXIS SQ enoxaparin. Ambulate. DISPOSITION Expected discharge to home. Family Medicine follow-up with Dr. Floyd. . Current Inpatient Medications: Current Inpatient Medications Medications (Trade) Dose Ordered Sig/[facility] Route Start Time Stop Time Status Last Admin Dose Admin Enoxaparin Sodium (Lovenox Inj) 40 mg QPM SC 02/02/18 21:00 03/04/18 20:59 02/02/18 20:05 40 MG Acetaminophen (Tylenol Tab) 650 mg Q4H PRN PO 02/02/18 15:15 03/04/18 15:14 Ondansetron HCl (Zofran Inj) 4 mg Q6H PRN IV 02/02/18 15:15 03/04/18 15:14 Aspirin (Ecotrin Tab) 81 mg DAILY PO 02/03/18 09:00 03/05/18 08:59 02/03/18 07:43 81 MG Lovastatin (Mevacor Tab) 20 mg PM PO 02/02/18 21:00 03/04/18 20:59 02/02/18 22:31 20 MG Tamsulosin HCl (Flomax Cap) 0.4 mg QAM PO 02/03/18 09:00 03/05/18 08:59 02/03/18 07:42 0.4 MG
[2018-02-03 11:58] VITALS: BP_SYST 119; BP_SYST 120; BP_SYST 125; BP_DIAS 81; BP_DIAS 82; BP_DIAS 86; PULSE 90; PULSE 92; PULSE 95; TEMP 36.4; O2SAT 97
[2018-02-03 15:35] VITALS: BP 150/93; PULSE 62; PULSE 94; TEMP 36.5; O2SAT 94
--- NOTE | 2018-02-03 15:37 | [facility] Operative Report ---
Operative Report Date of Service Feb 03, 2018. Operative Report The procedure performed: Implantation of patient activated loop recorder Staff machine learning intern: Darvin Simmons MD Indication: The patient is a 62-year-old gentleman with a history of syncope. Diagnostic testing today does not reveal definitive etiology. Based on the severe nature of his symptoms and the lack of a diagnosis the patient was advised to consider implantation of loop recorder. Procedure in detail: The patient was informed of the risks benefits and alternatives to the intended procedure. They understood such and wished to proceed. The patient was taken to the electrophysiology suite where the upper chest area was prepped and draped in the usual sterile fashion. An area left lateral to the sternum in the 4th intercostal space was subsequently anesthetized using subcutaneous administration of lidocaine solution. A small incision was made at this site and implantation of the loop recorder was accomplished using a proprietary implantation tool. The small incision was subsequently closed using a single 4 0 Vicryl suture. Steri-Strips and a sterile dressing were then applied. The patient tolerated the procedure well. There were no immediate complications. The device was tested noninvasively prior to conclusion of the procedure. Equipment used: Patient activated loop recorder: [employer]. Model number [id number]. Serial number [id number] I attest to the content of the Intraoperative Record and any orders documented therein. Any exceptions are noted below.
[2018-02-03 19:28] VITALS: BP 121/82; PULSE 68; TEMP 36.7; O2SAT 95
[2018-02-03] MEDS: ENOXAPARIN 40 MG/0.4 ML SYR SC SCH (20:41)
[2018-02-03] MEDS: LOVASTATIN 20 MG TAB PO SCH (20:41)
[2018-02-03 23:46] VITALS: BP 134/83; PULSE 60; TEMP 37; O2SAT 98
[2018-02-04 03:24] VITALS: BP 125/78; PULSE 72; TEMP 36.7; O2SAT 97
[2018-02-04 07:36] VITALS: BP 123/77; PULSE 50; TEMP 37; O2SAT 96
[2018-02-04] MEDS: ASPIRIN 81 MG ECTAB PO SCH (07:56)
[2018-02-04] MEDS: TAMSULOSIN HCL 0.4 MG CAP PO SCH (07:56)
[2018-02-04 12:01] VITALS: BP 128/68; PULSE 54; TEMP 37.1; O2SAT 97
--- NOTE | 2018-02-04 12:34 | Progress Note ---
Medicine Progress Note Date & Time of Visit: Feb 04, 2018 at 12:34 . Subjective Feels well. No CP, SOB, palpitations, lightheadedness, syncope, near-syncope. Ambulating. Ready to go home. . Objective Last 8 Hrs Date Time Temp Pulse Resp B/P (MAP) Pulse Ox O2 Delivery O2 Flow Rate FiO2 02/04/18 12:01 37.1 54 18 128/68 (88) 97 02/04/18 08:00 Room Air 02/04/18 07:36 37.0 50 16 123/77 (92) 96 Physical Exam: General- no distress Lungs- clear to auscultation; no respiratory distress Cardiovascular- RRR; no murmur or gallop appreciated; no JVD; no pretibial edema Abdomen- + bowel sounds, soft, nontender Extremities- no cyanosis; no calf tenderness Neuro- alert, oriented, expressive aphasia (chronic) Skin- warm & dry . Assessment & Plan SYNCOPE Recurrent syncope. EEG in September was unremarkable. Carotid duplex on 10/03/17 demonstrated chronic occlusion of left ICA (noted on carotid duplex performed 12/05/10). Cardiac CT was performed on 01/08/18 and showed a calcium score of 0; exam otherwise uninterruptible due to motion artifact. Recent outpatient ZIO monitor demonstrated a 4 second pause as well as paroxysmal supraventricular tachycardia. Episodes of syncope could be secondary to bradycardia or tachyarrhythmias or other etiologies. Implantable loop recorder placed during his hospital stay. No orthostatic hypotension. Lyme titer negative. Patient advised not to drive due to recurrent episodes of unexplained syncope. CEREBROVASCULAR DISEASE Status post 2 strokes. Neuro status stable. Continue aspirin, lovastatin. HYPOTHYROIDISM TSH normal. Continue levothyroxine. BPH Continue tamsulosin. Advise HS dosing due to syncopal episodes. VTE PROPHYLAXIS SQ enoxaparin. Ambulating. DISPOSITION Discharged to home. Family Medicine follow-up with Dr. Floyd. Cardiology follow-up with Dr. Goldberg. . Current Inpatient Medications: Current Inpatient Medications Medications (Trade) Dose Ordered Sig/[facility] Route Start Time Stop Time Status Last Admin Dose Admin Enoxaparin Sodium (Lovenox Inj) 40 mg QPM SC 02/02/18 21:00 03/04/18 20:59 02/03/18 20:41 40 MG Acetaminophen (Tylenol Tab) 650 mg Q4H PRN PO 02/02/18 15:15 03/04/18 15:14 Ondansetron HCl (Zofran Inj) 4 mg Q6H PRN IV 02/02/18 15:15 03/04/18 15:14 Aspirin (Ecotrin Tab) 81 mg DAILY PO 02/03/18 09:00 03/05/18 08:59 02/04/18 07:56 81 MG Lovastatin (Mevacor Tab) 20 mg PM PO 02/02/18 21:00 03/04/18 20:59 02/03/18 20:41 20 MG Tamsulosin HCl (Flomax Cap) 0.4 mg QAM PO 02/03/18 09:00 03/05/18 08:59 02/04/18 07:56 0.4 MG
--- NOTE | 2018-02-04 12:42 | Discharge Instructions ---
Discharge Instructions Date of Service Feb 04, 2018. Admission Reason for Admission: passed out . Discharge Discharge Diagnosis / Problem: passed out Discharge Goals Goal(s): Improve disease control Activity Recommendations Activity Limitations: as noted below Driving or Machine Use: no driving . Instructions / Follow-Up Instructions / Follow-Up APPOINTMENTS: CARDIOLOGY 02/10/2018 8:30 AM Ras Goldberg, DO [facility] CARDIOLOGY 02/17/2018 9:30 AM [facility] UROLOGY 06/23/2018 9:00 AM Nena Davis MD Urology, [facility] INTERNAL MEDICINE 07/01/2018 10:00 AM Elizabeth Tinsley, DO OTHER INSTRUCTIONS: Take tamsulosin (Flomax) at bedtime. You had a dose Friday morning. Next dose will be 02/05 at bedtime. Seek medical attention if you have: * temperature above 101 * chest pain or trouble breathing * abdominal pain, nausea, vomiting * diarrhea, dark stools or bloody stools * loss of consciousness, severe headache, trouble with vision, worsening speech , weakness in arms or legs * any unanswered questions or concerns Call 911 if symptoms are severe. Call if you have any questions or problems. My cell # is [phone]. You can also reach a [facility] hospitalist on duty at [facility] 24 hours a day by calling [phone]. Please take good care of yourself. Sudarshan Durán . Current Hospital Diet Patient's current hospital diet: AHA Diet (Heart Healthy) Discharge Diet Recommended Diet: AHA Diet (Heart Healthy) Pending Studies Studies pending at discharge: no Medical Emergencies . Who to Call and When: Medical Emergencies: If at any time you feel your situation is an emergency, please call 911 immediately. . Non-Emergent Contact Non-Emergency issues call your: Primary Care Provider, Local Company Flatbed Truck Driver, Hospital Doctor . . "Provider Documentation" section prepared by Sudarshan Durán. .
[2018-02-04 13:56] VITALS: BP 128/68; PULSE 54; TEMP 37.1; O2SAT 97
--- NOTE | 2018-02-05 22:10 | Discharge Summary ---
Discharge Summary Date of Service Feb 05, 2018. Discharge Summary Admission Date: Feb 02, 2018 at 15:10 Discharge Date: Feb 04, 2018 Discharge Disposition: Home Principal Diagnosis: syncope, possibly due to cardiac arrhythmia . Secondary Diagnoses/Problems: Chronic and Resolved Medical Problems: (1) CVA (cerebral vascular accident) Status: Chronic (2) Dyslipidemia Status: Chronic (3) Hypertension Status: Chronic (4) Left carotid artery occlusion Status: Chronic (5) Renal calculi Status: Chronic (6) Subclinical hypothyroidism Status: Chronic Surgical Problems: (1) H/O hernia repair Status: Chronic (2) H/O lithotripsy Status: Chronic (3) H/O wisdom tooth extraction Status: Chronic . Procedures: Cardiac monitoring CT of head Implantation of patient activated loop recorder . Consultations: Cardiology . Medication Reconciliation Continued Medications: Aspirin (Aspirin Chewable) 81 Mg Chew 81 MG PO DAILY Levothyroxine Sodium (Levothyroxine Sodium) 75 Mcg Tab 75 MCG PO DAILY Lovastatin (Mevacor) 20 Mg Tab 20 MG PO DAILY Tamsulosin Hcl (Flomax) 0.4 Mg Cap 0.4 MG PO HS Admission Information HPI (per Admitting provider): 62-year-old male who presents to the ED after syncopal event today. Patient has a long-standing history of lightheadedness and near syncope. He has been evaluated by electrophysiology as an outpatient. Patient had a 0 patch completed in 10/2017 that showed bradycardia and 4 second pause while sleeping. Patient also underwent a cardiac CT that was unremarkable. Patient was referred to have a implantable loop recorder placed however that has not been scheduled yet. Patient reports that while driving today he started to feel lightheaded. He then pulled over to the side of the road and lay down for 15 minutes. He reports his symptoms resolved. He then drove to his cousin's house. He was riding in the car with her whenever he reports he started to feel lightheaded again. He then subsequently passed out. I attempted to contact the patient's cousin who he was with however she did not answer the phone. Patient reports he was told he was out for about 1 minute. No reported tongue biting, loss of bowel or bladder function, or postictal-like state. Patient denies associated chest pain or shortness of breath. He reports he has never passed out in the past. He reports he otherwise has been feeling well recently. No fevers or chills. He denies abdominal pain, nausea, vomiting, or diarrhea. No urinary symptoms. In the ED, no bradycardia or pauses have been noted. BP is stable. Labs are unremarkable. EKG shows new T-wave inversions in the anterior leads. . Physical Exam (per Admitting): General Appearance: WD/WN, no apparent distress Head: normocephalic, atraumatic Eyes: normal inspection, EOMI, sclerae normal ENT: hearing grossly normal, + pertinent finding (Mucous membranes moist) Neck: supple, no JVD, trachea midline Respiratory/Chest: lungs clear, normal breath sounds, no respiratory distress Cardiovascular: regular rate, rhythm, no edema, normal peripheral pulses Abdomen/GI: normal bowel sounds, non tender, soft, no organomegaly Extremities/Musculoskelatal: normal inspection, no calf tenderness, normal capillary refill Neurologic/Psych: alert, normal mood/affect, oriented x 3, + facial droop ( Left-sided, chronic), + motor weakness (LUE/LLE strength 4/5, chronic), + pertinent finding (Dysarthria, chronic) Skin: normal color, warm/dry Hospital Course SYNCOPE Recurrent syncope. EEG in September was unremarkable. Carotid duplex on 10/03/17 demonstrated chronic occlusion of left ICA (noted on carotid duplex performed 12/05/10). Cardiac CT was performed on 01/08/18 and showed a calcium score of 0; exam otherwise uninterruptible due to motion artifact. Recent outpatient ZIO monitor demonstrated a 4 second pause as well as paroxysmal supraventricular tachycardia. Episodes of syncope could be secondary to bradycardia or tachyarrhythmias or other etiologies. Implantable loop recorder placed during his hospital stay. No orthostatic hypotension. Lyme titer negative. Patient advised not to drive due to recurrent episodes of unexplained syncope. CEREBROVASCULAR DISEASE Status post 2 strokes. Neuro status stable. Continue aspirin, lovastatin. HYPOTHYROIDISM TSH normal. Continue levothyroxine. BPH Continue tamsulosin. Advise HS dosing due to syncopal episodes. VTE PROPHYLAXIS SQ enoxaparin. Ambulating. DISPOSITION Discharged to home. Family Medicine follow-up with Dr. Floyd. Cardiology follow-up with Dr. Goldberg. . Total time spent on discharge = 40 min. This includes examination of the patient, discharge planning, medication reconciliation, and communication with other providers. . Discharge Instructions Date of Service Feb 04, 2018. Admission Reason for Admission: passed out . Discharge Discharge Diagnosis / Problem: passed out Discharge Goals Goal(s): Improve disease control Activity Recommendations Activity Limitations: as noted below Driving or Machine Use: no driving . Instructions / Follow-Up Instructions / Follow-Up APPOINTMENTS: CARDIOLOGY 02/10/2018 8:30 AM Ras Goldberg DO [facility] CARDIOLOGY 02/17/2018 9:30 AM [facility] UROLOGY 06/23/2018 9:00 AM Nena Davis MD Urology, [facility] INTERNAL MEDICINE 07/01/2018 10:00 AM Elizabeth Tinsley DO OTHER INSTRUCTIONS: Take tamsulosin (Flomax) at bedtime. You had a dose Friday morning. Next dose will be 02/05 at bedtime. Seek medical attention if you have: * temperature above 101 * chest pain or trouble breathing * abdominal pain, nausea, vomiting * diarrhea, dark stools or bloody stools * loss of consciousness, severe headache, trouble with vision, worsening speech , weakness in arms or legs * any unanswered questions or concerns Call 911 if symptoms are severe. Call if you have any questions or problems. My cell # is [phone]. You can also reach a [facility] hospitalist on duty at [facility] 24 hours a day by calling [phone]. Please take good care of yourself. Sudarshan Durán . Current Hospital Diet Patient's current hospital diet: AHA Diet (Heart Healthy) Discharge Diet Recommended Diet: AHA Diet (Heart Healthy) Pending Studies Studies pending at discharge: no Medical Emergencies . Who to Call and When: Medical Emergencies: If at any time you feel your situation is an emergency, please call 911 immediately. . Non-Emergent Contact Non-Emergency issues call your: Primary Care Provider, Area Director Of Home Health Sales, Hospital Doctor . . "Provider Documentation" section prepared by Sudarshan Durán. .. Additional Copies To Christi Floyd M.D.; Ras Goldberg DO; Elizabeth Tinsley, DRubi
== END 2018-02-04 14:23 | disposition home or self-care (01) | DRG 262 ==
LOC: EDBD 12:38 → C.EDB 12:39 → C.2T 15:10 → ENRESERV 16:08
PROVIDERS: ADMIT Hospitalist; ATTEND Hospitalist
PROC: 0JH632Z Insertion of Monitoring Device into Chest Subcutaneous Tissue and Fascia, Percutaneous Approach (ICD-10-PCS; principal; 2018-02-03 08:57)
DX: R55 Syncope and collapse (principal); I45.10 Unspecified right bundle-branch block; I69.320 Aphasia following cerebral infarction; I65.22 Occlusion and stenosis of left carotid artery; E03.9 Hypothyroidism, unspecified; N40.0 Benign prostatic hyperplasia without lower urinary tract symptoms; E78.5 Hyperlipidemia, unspecified; Z87.442 Personal history of urinary calculi; Z87.891 Personal history of nicotine dependence; Z79.82 Long term (current) use of aspirin; Z79.899 Other long term (current) drug therapy; Z98.890 Other specified postprocedural states; Z82.49 Family history of ischemic heart disease and other diseases of the circulatory system